=== PATIENT | male | born 1985 | race Caucasian/White ===

== ENCOUNTER 2016-03-30 15:40 | Emergency (ER) | payer BC ==
[~2016-03-30] VITALS: Ht 187.9 cm; Wt 97.5 kg
[~2016-03-30 15:40] MED LIST: AUGMENTIN 875 M1 TAB PO; DAYPRO600 M1 PO; MOTRIN800 MG PO; PHENERGAN25 M1 PO; PROVENTIL0.09 MG/AC IH; TRAMADOL HCL50 MG PO; VICODIN 5/500 505 MG PO; ZOFRAN4 MG PO
[2016-03-30] MEDS ORDERED: NAPROSYN500 MG PO (17:11)
== END 2016-03-30 17:02 | disposition home or self-care (01) ==
LOC: ED 15:40
DX: R07.81 Pleurodynia (principal); Z79.899 Other long term (current) drug therapy

== ENCOUNTER 2020-05-06 15:11 | Emergency (ER) | payer OTHER ==
[~2020-05-06] VITALS: Ht 187.9 cm; Wt 106.6 kg
[~2020-05-06 15:11] MED LIST changes: +NAPROSYN500 MG PO
[2020-05-06 16:11] LABS: BASO # 0.1 10*3/uL (0.0-0.1); BASO % 1.1 % (0.0-1.0); EOS # 0.5 10*3/uL (0.0-0.4); EOS % 8.2 % (1.0-4.0); HEMATOCRIT 45.9 % (42.0-52.0); LYMPH # 1.1 10*3/uL (1.3-4.4); MEAN CELL VOLUME 88.1 fl (80.0-94.0); MEAN CORPUSCULAR HGB 30.7 pg (27.0-31.0); MEAN CORPUSCULAR HGB CONC 34.9 g/dl (33.0-37.0); MEAN PLATELET VOLUME 8.9 fl (9.6-12.3); MONO # 0.5 10*3/uL (0.1-1.0); MONO % 7.9 % (3.0-9.0); NEUT % 64.6 % (47.0-73.0); PLATELET COUNT AUTOMATED 273 10*3/uL (130-400); RED BLOOD COUNT 5.21 10*6/uL (4.50-5.90); RED CELL DISTRI WIDTH 11.5 % (0-14.5); WHITE BLOOD COUNT 6.2 10*3/uL (4.8-10.8)
[2020-05-06 16:30] LABS: ACT PARTIAL THROMBO TIME 29.8 SECONDS (20.0-32.1)
[2020-05-06 16:34] LABS: ALBUMIN 3.9 gm/dl (3.1-4.5); ALKALINE PHOSPHATASE 56 U/L (45-117); BUN 17 mg/dl (7-24); CHLORIDE 108 mmol/L (98-107); CREATININE 1.14 mg/dL (0.70-1.30); POTASSIUM 4.4 mmol/L (3.5-5.1); SGOT/AST 26 IU/L (3-35); SGPT/ALT 64 U/L (12-78); SODIUM 139 mmol/L (136-145); TOTAL PROTEIN 7.9 gm/dL (6.4-8.2)
[2020-05-06 16:39] LABS: TROPONIN I < 0.015 ng/ml (<0.045)
[2020-05-06] MEDS ORDERED: PROAIR HFA8.5 GM INH (17:46)
[2020-05-06] MEDS ORDERED: PREDNISONE10 MG PO (17:46)
== END 2020-05-06 17:50 | disposition home or self-care (01) ==
LOC: ED 15:11
PROVIDERS: Family Medicine
DX: U07.1 COVID-19 (principal); J45.901 Unspecified asthma with (acute) exacerbation; Z79.899 Other long term (current) drug therapy; Z98.890 Other specified postprocedural states

== ENCOUNTER → 2024-03-23 | Outpatient (CLI) | payer BC ==
[~2024-03-23] MED LIST changes: +PREDNISONE10 MG PO; +PROAIR HFA8.5 GM INH
[2024-03-23 16:04] LABS: BILIRUBIN Negative (Negative); BLOOD Negative (Negative); CLARITY Clear (Clear); COLOR Yellow (Yellow); GLUCOSE Negative (Negative); KETONE Negative (Negative); LEUKO ESTERASE Negative (Negative); NITRITE Negative (Negative); PH 7.5 (4.5-8.0)
[2024-03-23 16:05] LABS: BASO % 0.5 % (0.0-1.0); EOS # 0.1 10*3/uL (0.0-0.4); EOS % 3.2 % (1.0-4.0); HEMATOCRIT 42.4 % (42.0-52.0); MEAN CELL VOLUME 86.5 fl (80.0-94.0); MEAN CORPUSCULAR HGB 30.4 pg (27.0-31.0); MEAN CORPUSCULAR HGB CONC 35.1 g/dl (33.0-37.0); MEAN PLATELET VOLUME 8.2 fl (9.6-12.3); MONO # 0.6 10*3/uL (0.1-1.0); MONO % 13.2 % (3.0-9.0); NEUT # 2.9 10*3/uL (2.3-7.9); NEUT % 66.2 % (47.0-73.0); PLATELET COUNT AUTOMATED 228 10*3/uL (130-400); RED CELL DISTRI WIDTH 11.8 % (0-14.5); RETICULOCYTE % 0.84 % (0.50-2.50); WHITE BLOOD COUNT 4.3 10*3/uL (4.8-10.8)
[2024-03-23 16:22] LABS: MUCOUS TRACE; RBC 0-2 rbc/hpf (0-2)
[2024-03-23 16:39] LABS: ALKALINE PHOSPHATASE 61 U/L (46-116); BUN 9 mg/dl (9-23); CHLORIDE 104 mmol/L (98-107); CHOLESTEROL 140 mg/dL (<200); GAMMA GLUTAMYL TRANSPEPTIDASE 38 U/L (0-73); LDL CHOLESTEROL 84 mg/dL (9-159); POTASSIUM 3.7 mmol/L (3.4-5.1); SGPT/ALT 22 U/L (5-49); T3 UPTAKE 26.1 % (22.4-36.7); THYROXINE (T4) TOTAL 7.9 ug/dl (4.5-10.9); TOTAL PROTEIN 7.2 gm/dL (6.0-8.0); TRIGLYCERIDES 120 mg/dl (<150); URIC ACID 6.5 mg/dL (3.7-9.2)
[2024-03-23 16:53] LABS: VITAMIN D, 25-HYDROXY 16.6 ng/mL (30-100)
[2024-03-24 13:06] LABS: ANTI-DSDNA ANTIBODIES <1 IU/mL (0-9)
== END | disposition home or self-care (01) ==
LOC: LAB 15:23
PROVIDERS: ATTEND Family Medicine
DX: R79.89 Other specified abnormal findings of blood chemistry (principal); R53.83 Other fatigue; E78.5 Hyperlipidemia, unspecified; E55.9 Vitamin D deficiency, unspecified; R06.02 Shortness of breath; M47.814 Spondylosis without myelopathy or radiculopathy, thoracic region